=== PATIENT | female | born 1985 | race African-American/Black ===

== ENCOUNTER 2021-05-01 01:54 | Emergency (ER) | payer OTHER ==
[~2021-05-01] VITALS: Ht 167.6 cm; Wt 88.6 kg
[2021-05-01 02:01] VITALS: BP 138/93
[2021-05-01] MEDS ORDERED: ACETAMINOPHEN 500 MG TABLET PO ONE (02:30)
[2021-05-01] MEDS ORDERED: LORazepam 2 MG TABLET PO ONE (02:30)
== END 2021-05-01 04:28 | disposition home or self-care (01) ==
LOC: EMS 02:05
DX: F15.10 Other stimulant abuse, uncomplicated (principal); M79.7 Fibromyalgia; F32.A Depression, unspecified
CPT/HCPCS: 93005; 99283